=== PATIENT | male | born 1955 | race Caucasian/White ===

== ENCOUNTER → 2020-04-25 | Outpatient (CLI) | payer OTHER ==
[~2020-04-25] MED LIST: ACETAMINOPHEN325 M1 OR; ASPIRIN325 OR; IBUPROFEN 600600 M1 PO; IBUPROFEN 800800 M1 PO; KEFLEX500 MG PO; LIDODERM 5%1 PATC1 TRANSDERM; PERCOCET 10-321 EACH PO; PERCOCET 5-3251 EACH; PERCOCET 7.5-31 EACH PO; PROAIR HFA8.5 GM INH; TRAZODONE 150150 M1 PO; TRAZODONE 150150 MG PO; XANAX 0.5 MG0.5 M1 PO; XANAX 1 MG TABLE1 MG PO
== END ==
LOC: RAD 09:24
DX: M43.22 Fusion of spine, cervical region (principal)

== ENCOUNTER → 2020-05-07 | Outpatient (CLI) | payer OTHER | LOC: CAT 09:35 | DX: M48.02 Spinal stenosis, cervical region (principal); G89.28 Other chronic postprocedural pain; M43.22 Fusion of spine, cervical region; J98.4 Other disorders of lung; Z98.890 Other specified postprocedural states ==

== ENCOUNTER → 2020-05-10 | Outpatient (CLI) | payer OTHER ==
[2020-05-10 10:05] LABS: CREATININE 0.9 mg/dL (0.7-1.3)
== END ==
LOC: MRI 09:14
DX: M51.36 Other intervertebral disc degeneration, lumbar region (principal); M51.26 Other intervertebral disc displacement, lumbar region; M41.86 Other forms of scoliosis, lumbar region; M48.061 Spinal stenosis, lumbar region without neurogenic claudication; M25.78 Osteophyte, vertebrae; M43.26 Fusion of spine, lumbar region

== ENCOUNTER → 2020-06-05 | Outpatient (CLI) | payer OTHER | LOC: CAT 08:06 | DX: M47.816 Spondylosis without myelopathy or radiculopathy, lumbar region (principal); M54.42 Lumbago with sciatica, left side; M54.41 Lumbago with sciatica, right side; G89.29 Other chronic pain; M43.26 Fusion of spine, lumbar region ==

== ENCOUNTER 2020-07-18 06:06 | Inpatient (IN) | payer OTHER ==
[2020-07-17 14:25] LABS: APTT 26.3 Seconds (24.5-32.8); PROTIME 10.1 Seconds (9.3-11.4)
[~2020-07-18] VITALS: Ht 182.9 cm; Wt 61.2 kg
--- NOTE | ~2020-07-18 | O ---
[facility] [address] OPERATIVE REPORT Name: HUDSON SANCHEZ Room #: 150-2 ADM IN M.R.#: [id number] Admission: 07/18/20 Attend Phys: Fan Gould MD Discharge: Date of : 57 Report #: [id number] THIS REPORT FOR: cc: Mere Fuentes MD,Fan Cabello MD, MD ~ CC: Fan Fuentes DATE OF SERVICE: 07/18/2020 PREOPERATIVE DIAGNOSES: L2-L3 degenerative disk disease, asymmetric collapse due to super adjacent level breakdown, spondylosis with radiculopathy, L2-L3 nerve root radiculopathy, spinal stenosis L2, recurrent L3, foraminal stenosis L2-L3, retrolisthesis of L2-L3 and previous fusion L3-S1. PROCEDURES: Remove posterior segmental instrumentation L3-L5, exploration of fusion with findings of possible pseudarthrosis right L3-L4 and L4-L5, posterior segmental instrumentation L2-L5, posterior posterolateral fusion L2-L3, posterior posterolateral fusion L3-L4, posterior posterolateral fusion L4-L5, laminectomy with partial facetectomy and neural foraminotomy of L2, laminectomy with partial facetectomy and neural foraminotomy redo L3 for spinal stenosis, autograft synthetic bone, allograft. SURGEON: Dr. Fan Gould. AIR FORCE PILOT SURGEON: JESSE Bermudez. ANESTHETIC: General via endotracheal tube. INDICATIONS: The patient has had intractable back and left much-much greater than right anterior thigh pain. The patient has proved refractory to all forms of multimodality conservative management. He has been shown to have stenosis in the neural foramen at L2-L3 and some recurrent stenosis at L3-L4 neural foramen. The patient has proved refractory to all forms of multimodality conservative managements. He is requesting we proceed with operative intervention. The patient was brought to the operating room after understanding the risks of surgery to be , DVT, pulmonary embolism, paraplegia, loss of the use of the bowel, the bladder, loss of sexual function, possibility of bleeding, bleeding requiring transfusion, transfusion attendant risks of AIDS and hepatitis infection, instability, the need for revision, prolonged hospital stay, dural leak, spinal headache, infection and again he requested we proceed. DESCRIPTION OF PROCEDURE: The patient was brought to the operating room, administered general anesthesia via endotracheal tube. Lower extremities were [facility] [address] [place] [address] OPERATIVE REPORT Name: HUDSON SANCHEZ ALAN Room #: 150-2 [facility] IN .R.#: [id number] Admission: 07/18/20 Attend Phys: Fan Gould MD Discharge: Date of : 57 Report #: [id number] treated with EMMA hose and intermittent compression stockings. A Michel catheter was placed. Ancef was received and the patient was positioned on the Hugo table in the prone position with all bony prominences padded appropriately. Care was taken to ensure the shoulders not abducted more than 90 degrees, the elbows flexed more than 90 degrees and there was no undue pressure on the cubital or carpal canals. The area of the anterior superior iliac spine was well padded to protect the lateral femoral cutaneous nerve. Hips and knees were well padded and there was no pressure on the dorsum of the feet. The patient's low back was defatted with alcohol, visualized under fluoroscopy and the pedicles of L2 through L5 were marked on the patient's back for surgical reference. This was largely through previous incision. We then sterilely prepped and draped, infiltrated the skin with 0.5% Marcaine, 1:200,000 epinephrine and sharp dissection was continued down through the skin, the subcutaneous tissues. As we moved down through the scar, we were careful not to inadvertently penetrate the previous laminectomy at L2-L3 or the decompression from L3 to the sacrum. We skeletonized the instrumentation that was segmental from L3 to L5 including a transverse connector, set our deep self-retaining retractors and removed the instrumentation. We removed the segmental screws and the transverse connector of L3, L4, L5 and S1. We then explored the fusion continuing our dissection until we had scar removed that had been beneath the rods and screws and we were able to completely expose the posterolateral gutter and the posterior elements that remained at L3, L4 and L5. We then placed pedicle probes in the holes at L4-L5 and L3-L4. We stressed the fusion. It seemed significantly more stiff on the left side than the right. I was concerned that the patient had unilateral pseudarthrosis at L4-L5 and L5-S1. On that basis, we brought in fluoroscopy, affixed clamps on L2 and a very small remnant of L3 and these clamps were placed perpendicular to the floor. A lateral fluoroscopy view confirmed our level and gave us our pedicle directions for insertion of new screws in L2. We then decorticated the base of the transverse process in line with the lateral facet at L2 and inserted a pedicle probe and drilled it to a depth of 40 mm. With a probe inserted, we then removed it, palpated the hole to ensure cortical integrity and then placed a metallic marker. When the markers were bilaterally placed in the L2 pedicles, we brought the fluoro back and checked in AP and lateral fluoroscopic view and it showed excellent position of our markers. With our markers noted in good position, we were then able to tmd teacher the appropriate length of screws and we chose a 50 mm. We then tapped the holes in L2 and after tapping the holes, we decorticated posterolaterally and placed synthetic bone that had been soaked in blood that had been obtained through the pedicle process at L2 and after having removed the screws in L3, L4, and L5, there was enough blood that we could collect and soaked in the vertebral body blood rich in stem cells. This was then packed over the decorticated elements at L2-L3, L3-L4 and L4-L5. We then inserted the screws, measured, cut and contoured rods and locked them into place. We reinserted the screws at L3, L4 and L5, contoured the rods appropriately and then set the locking screws. Now with the right side instrumentation complete from L2-L5 and the fusions redone posterolaterally at [address] [address] OPERATIVE REPORT Name: HUDSON SANCHEZ Room #: 150-2 ADM IN M.R.#: [id number] Admission: 07/18/20 Attend Phys: Fan Gould MD Discharge: Date of : 57 Report #: [id number] L2-L3, L3-L4 and L4-L5, we turned our attention to the left side, the same procedure was accomplished. We pulled the pin from the pedicle of left L2. We noted that on the MRI that the pedicle measured significantly smaller than the right pedicle. We tapped with a 5.5-mm tap and while performing palpation with a ball tip probe noted that we were on the medial and the lateral cortex. Therefore, I stayed with a 5.5 mm screw, but before insertion it was decorticated posterolaterally, the transverse processes of L2, L3, L4, L5 and synthetic bone was packed that had been reconstituted with the vertebral body blood packed on the transverse processes and lateral facets from L2-L3 to L3-L4 to L4-L5. With the synthetic bone in place, we were then able to insert the screws, measured, cut and contoured the rods and noted that we had corrected some of the asymmetrical collapse narrower on the left at L2-L3. We did a final locking. We did not want to load the screw too much as it was a smaller screw and it was a smaller pedicle of L2. We had reduced the retrolisthesis of L2 to anatomic. We then locked all the caps to appropriate tightness with a torque wrench. We took a heavy bowl curette and debulked the scar and defined the intracanal margins of the previous decompression at L2-L3 and from L3-L5. We then used a micro curette to separate the scarred dura from the undersurface of the lamina of L2 that had been thinned with a high speed drill. The lamina of L2 had been thinned to its anterior cortex. We then dissected the scarred dura from the undersurface of the lamina, resected the lamina of L2 until we reached the L2 pedicles. We then turned our dissection lateralward first on the right performing partial facetectomies and ligament resections in redo fashion at L2-L3 and almost to the L3-L4 neural foramen, which was cleared with neural foraminotomy. This was to ensure that both the L2 and the L3 nerve roots had been completely decompressed. We then turned our attention to the left side and performed exactly the same procedure. We did laminectomy, partial facetectomies and neural foraminotomies of L2, L3 and to the L3-L4 neural foraminal decompression. With the decompression now complete, we drilled out the facets for a posterior fusion at L2-L3. We took the autologous bone from the laminectomy, all of which had been saved and run cleaned and run through the bone mill and used this bone to perform a posterior fusion at the L2-L3 level. We also used some of the autograft that we had from the decompression to augment the fusions at L2-L3, L3-L4, L4-L5. With the posterolateral and posterior fusions complete, we were able to irrigate with a liter of antibiotic-containing solution. We placed pledgets thrombin-soaked Gelfoam over the spinal canal. We obtained meticulous hemostasis. We placed a gram of powdered vancomycin in the wound. We closed the deep fascial layer with 0 Ethibond in [id number] interrupted fashion, deep subcutaneous with 0 Vicryl, superficial subcutaneous 2-0 Vicryl, skin with subcuticular 3-0. Dressed it with benzoin, Steri-Strips, Xeroform, sterile dressing, sponges and a bioclusive. The patient tolerated the procedure well, no technical misadventures, being transported to the recovery room for closer neurovascular observation, discharge to floor when stable. The patient's final blood loss was 500 mL. A Hemovac drain had been placed deep. The patient was physiologically stable throughout. There were no technical misadventures. All nerve roots probed completely free. The x-rays look superb [address] [address] OPERATIVE REPORT Name: HUDSON SANCHEZ MALIA Room #: 150-2 [facility] IN M.R.#: [id number] Admission: 07/18/20 Attend Phys: Fan Gould MD Discharge: Date of : 57 Report #: [id number] with respect to instrumentation placement and overall spinal alignment. The patient is being transported to the recovery room for closer neurovascular observation, continue prophylactic antibiotic and serial neurovascular exams until discharged to the floor when stable. By: 1128 [id number] Fan Gould MD /nt
[~2020-07-18 06:06] MED LIST changes: +ANORO ELLIPTA1 EACH INH; +MULTIVITAMINS PO
[2020-07-18 07:15] VITALS: BP 94/64
[2020-07-18 16:31] VITALS: BP 105/59
[2020-07-18 16:40] VITALS: BP 106/61
[2020-07-18 16:52] VITALS: BP 112/56
[2020-07-18 19:55] VITALS: BP 112/56
[2020-07-18 20:52] LABS: HEMATOCRIT 37.8 % (42.0-52.0); HEMOGLOBIN 12.4 gm/dL (14.0-18.0); MCH 33.7 pg (26.0-34.0); MCHC 32.7 g/dL (28.0-37.0); MCV 102.8 fL (80.0-100.0); RBC 3.68 mil/uL (4.50-6.00); RDW 14.6 % (10.5-14.5)
[2020-07-18 20:55] LABS: CALCIUM 8.9 mg/dL (8.5-10.1)
--- NOTE | 2020-07-18 20:56 | NUR ---
PT WAS WAKING UP FROM SURGERY AND STARTED PULLING ON THE HEAD OF BUSINESS DEVELOPMENT PUMP LINES. HE CONTINUED TO TAKE HIS CAPNOAGRAPHY SENSOR OFF. SECURITY WAS CALLED. WHILE TRYING TO REDIRECT PATIENT TO CALM DOWN HE CONTINUED TO PULL ON HIS LINES HE PULLED OUT HIS IV SITE. PT EDUCATED THAT HE WILL NOT BE ABLE TO GET ANY OF HIS IV MEDS. HE CONTINUED TO PULL ON ALL HIS LINES. SOFT RESTRAINTS WERE APPLIED FOR PATIENT SAFETY. INTERVENTION INITIATED. ORDERS PRN GIVEN BY SCOOTER OCONNELL. RESTRAINS CHECKED.
--- NOTE | 2020-07-18 21:17 | NUR ---
HERE TO GIVE PATIENT PAIN MEDS. HE WANTS BED ALARM TURNED OFF. I EDUCATED HIM. HE IS SITTING AT THE EDGE OF THE BED. RATES PAIN AT A 10/10. IVP DIULADID TO BE GIVEN.
--- NOTE | 2020-07-18 22:39 | NUR ---
Pt. came on to unit at 1430. Pt. was hostile and immaediately attempted to stand. Pt. refused to leave Capnography machine on. Pt. asked for more pain medication via IM injection. Provider notified, orders given, medication given. Pt. continued to have lapses of agitation and attempts to get out of bed. Provider notified, provider to put in orders. Upon returning from my lunch Pt. began to rip out lines and discontinued IV with DRUG ENFORCEMENT AGENT pump as well as attempted to knock the machine over the DRUG ENFORCEMENT AGENT's and Nieves were attempting to conserve pt. safety. I then assisted with security in protecting pt. while four-point restraints were applied by GERARD Pickett. During this process IM Lorazepam was given by GERARD Pickett to the pt. for pt safety. The patient's was notified of the restraints and understood and agreed that this was in the best interest of the pt. and his own safety. Pt. remained rested for the duration of the shift. Pt. began to show signs of sedation at change of shift with 8 respirations per minute being read on the Capnography machine. Provider notified, Rapid Response called. When patient was woke up and began interacting with those surrounding him, his respirations became stable at 14. Oncoming nurse MARISA'd DRUG ENFORCEMENT AGENT.
--- NOTE | 2020-07-19 00:29 | NUR ---
EXECUTIVE VICE PRESIDENT AND CHIEF OPERATING OFFICER called for decreased loc and decreased respirations. See EXECUTIVE VICE PRESIDENT AND CHIEF OPERATING OFFICER flowsheet.
--- NOTE | 2020-07-19 04:55 | NUR ---
UPON SHIFT CHANGE AND REPORT, PT OBSERVED WITH BILATERAL WRIST AND ANKLE RESTRAINTS. REVIEWED ORDERS WITH PT NURSE, SANDRA AND CHARGE NURSE, DONNA. PT ASSESSED AT 1950 WITH RESPIRATIONS BETWEEN 7-8 WHILE RECEIVING SHELL REPRINT OPERATOR OF DILAUDID WITH BASAL RATE OF 0.4MG/HR. PT DROWSY, SLOW TO AROUSE. RADIAL DRILL PRESS OPERATOR FOR PLASTIC NOTIFIED, ATTENDING NOTIFIED, RAPID RESPONSE INITIATED AT 1955, SHELL REPRINT OPERATOR STOPPED, RESTRAINTS REMOVED. RESTRAINTS CUT WITH SCISSORS DUE TO CLOSE PROXIMITY, LESS THAN A FINGER BREATH BETWEEN EXTREMITIES AND RESTRAINTS. DURING RAPID RESPONSE, PT NOTED TO HAVE INCREASING RESPIRATIONS FROM 11-17 BREATHS PER MINUTE, WITH CONTINUED OXYGEN AT 4L. PT ALSO BECOMING ALERT, SITTING ON SIDE OF BED, REMOVING CAPNOGRAPHY MONITOR. FOOD CLERK COORDINATED PLAN OF CARE WITH ATTENDING, EMAR UPDATED. PT NOTED TO BECOME INCREASINGLY IRRITABLE, FORGETFUL, CONFUSED, AND ARGUMENTATIVE. PT REPORTS 10/10 PAIN IN LOWER BACK. PT RECEIVING PRN IV DILAUDID Q3HR AND PRN OXYCODONE PO Q4HR. PT REASSESSED TO BE NODDING OFF, HAVING DIFFICULTY OPENING EYES, WITH RESTLESSNESS, IRRITABILTY,CONFUSION, UNCOOPERATIVE WITH FALL PRECAUTIONS, DIFFICULT TO REDIRECT AND CONSOLE. PT NOTED TO FREQUENTLY CONTACT PHYSICIAN PERSONALLY EXPRESSING NOT RECEIVING PAIN MEDICATIONS AND NEED TO INCREASE DOSAGE. THIS NURSE COMMUNICATED WITH ATTENDING TO PROVIDE UPDATE OF PT STATUS AND MENTAL STATUS, NO ORDERS RECEIVED. THROUGHOUT THE NIGHT PT CONTINUED WITH IRRITABILITY, UNCOOPERATIVENESS, SEEKING PAIN MEDICATION WHILE NODDING OFF AND DIFFICULTY OPENING EYES. PROVIDED EDUCATION TO PT IN REGARDS TO SAFE MEDICATION ADMINISTRATION, PT NOT RECEPTIVE TO EDUCATION, CONTINUES TO CONTACT ATTENDING PERSONALLY. DISCUSSED OPTIONS TO MANAGE ANXIETY AND PAIN, PT REQUESTING HIGHER DOSE OF DILAUDID AND XANAX ONLY. PROVIDED REASSURANCE TO PT THAT OXYCODONE AVAILABLE ALONG WITH PRN PO XANAX QID. PT CONTINUES TO BE DIFFICULT TO CONSOLE, REPORTING HE WILL GO AMA AND SOM. PT OBSERVED WALKING WITH WALKER, REFUSING FALL PRECAUTIONS AND SAFE ERGONOMIC ACTIVITY. PT ALSO OBSERVED SQUATTING WITH LITTLE DIFFICULTY WELL RECLINING WITHOUT ASSIST OR SUPPORT. PT NOTED TO HAVE FLACC OF 1, NOTED TO GRIMACE WITH WALKING, RECLINING, AND SQUATTING. CONSTANT OBSERVATION INITIATED WHEN 2ND SHELL REPRINT OPERATOR ARRIVED TO FLOOR TO PROMOTE FALL PRECAUTIONS AND PREVENT FALL DUE TO PT DROWSINESS WITH ACTIVITY. PT TOLERATING PO INTAKE OF FLUIDS AND REGULAR DIET. PT UNABLE TO VOID, EXPRESSING URGENCY WITHOUT EFFECT. PT REFUSING BLADDER SCAN BY THIS NURSE. FOOD CLERK NOTIFIED, PT BLADDER SCANNED WITH GREATER THAN 376ML. PROVIDED EDUCATION TO PT IN REGARDS TO URINARY RETENTION, STRAIGHT CATH TO RELIEVE BLADDER, AND RISKS OF NOT REMOVING URINE FROM BLADDER, PT NOT RECEPTIVE TO EDUCATION, REFUSING STRAIGHT CATH. PT ABDOMEN NONDISTENDED, NONTENDER.PT CONTINUES TO REQUEST URINAL AND WALKS TO BATHROOM WITHOUT EFFECT. CONSTANT OBSERVATION CONTINUES. ENCOURAGED PT TO NOTIFY STAFF FOR ALL NEEDS, CALL LIGHT WITHIN REACH, BED ALARM ON.
[2020-07-19 06:08] LABS: ABSOLUTE NEUTROPHILS 8.9 thou/uL (1.4-8.2); BASOPHILS 0.6 % (0.0-2.0); HEMATOCRIT 35.3 % (42.0-52.0); HEMOGLOBIN 11.7 gm/dL (14.0-18.0); LYMPHOCYTES 16.4 % (24.0-44.0); MCH 34.1 pg (26.0-34.0); MCHC 33.2 g/dL (28.0-37.0); MCV 102.5 fL (80.0-100.0); MONOCYTES 11.3 % (1.0-8.0); PLATELET COUNT 153 thou/uL (150-400); POLYS 71.7 % (36.0-66.0); RBC 3.44 mil/uL (4.50-6.00); RDW 14.2 % (10.5-14.5); WBC 12.3 thou/uL (4.0-11.0)
[2020-07-19 06:16] LABS: CALCIUM 8.8 mg/dL (8.5-10.1); CREATININE 1.1 mg/dL (0.7-1.3); POTASSIUM 4.5 mmol/L (3.5-5.1)
[2020-07-19 08:10] VITALS: BP 100/73
--- NOTE | 2020-07-19 08:19 | EKG ---
[facility] [place] [place] [address] ELECTROCARDIOGRAM REPORT Name: HUDSON SANCHEZ Room #: 439-P ADM IN M.R.#: [id number] Admission: 07/18/20 Attend Phys: Fan Golud MD Discharge: Date of : 57 Report #: [id number] THIS REPORT FOR: cc: Mere Fuentes MD, Michelle R. MD Santiago, Patrick MD [facility] ~ THIS REPORT FOR: //name// [facility] Test Date: 2020-07-18 Test Time: 20:08:48 Pat Name: HUDSON SANCHEZ Department: Room: 439 P Gender: M Wool Tamper: PHI : 1955 Requested By: Fan Gould Order Number: [id number] MD: Jonathon Saunders Measurements Intervals [place] Rate: 88 P: 65 NE: 165 QRS: 47 QRSD: 90 T: 57 QT: 354 QTc: 429 Interpretive Statements Sinus rhythm Compared to ECG 05/04/2016 10:12:03 Ectopic atrial rhythm no longer present Electronically Signed On 07-19-2020 8:19:50 CDT by Jonathon Saunders [email or web address] <ELECTRONICALLY SIGNED> By: Jonathon Saunders MD, FACC 07/19/20 0819 07 07 Jonathon Saunders MD, FAC /EPI
[2020-07-19] MEDS ORDERED: FLEXERIL PO (08:46)
[2020-07-19] MEDS ORDERED: MIRALAX17 GM PO (08:46)
[2020-07-19] MEDS ORDERED: COLACE100 MG PO (08:46)
[2020-07-19 09:55] VITALS: BP 100/73
--- NOTE | 2020-07-19 10:11 | NUR ---
CM WAS GOING TO MEET WITH PATIENT BUT BEDSIDE RN REPORTS PATIENT HAS ORDERS TO DISCHARGE HOME TO SELF CARE WITH NO NEEDS FROM CM. SHE REPORTS PATIENT IS DISCHARGING NOW. CASE CLOSED.
--- NOTE | 2020-07-19 10:30 | NUR ---
PT ASSESSED AT START OF SHIFT. CALM AND COOPERATIVE AT THE TIME BUT VERY DROWSY AND SOMEWHAT FORGETFUL. DR. YOUNG IN AT O730 TO SEE PT. CONVINCED PT TO ALLOW BLADDER SCAN AND STR CATH. ATTEMPTED TO STR CATH W/ 14F BUT UNSUCCESSFUL. DR. YOUNG OBTAINED 10FR AND WAS ABLE TO DRAIN 500MLS CLEAR YELLOW URINE. ORDER FOR PT DISCHAGE OBTAINED PER PT REQUEST. HERE AND INSTRUCTIONS GONE OVER. PT DC'D W/ ALL BELONGINGS AND WILL F/U W/ DR. YOUNG.
--- NOTE | 2020-07-19 10:36 | NUR ---
PATIENT D/C HOME WITH NO NEEDS PRIOR TO OT EVAL.
== END 2020-07-19 10:42 | disposition home or self-care (01) | DRG 460 ==
LOC: TBA 06:06 → PRE 11:50 → 4S 14:30
PROVIDERS: ATTEND Hospitalist
PROC: 0SG10AJ Fusion of 2 or more Lumbar Vertebral Joints with Interbody Fusion Device, Posterior Approach, Anterior Column, Open Approach (ICD-10-PCS; principal; 2020-07-18)
PROC: 01NB0ZZ Release Lumbar Nerve, Open Approach (ICD-10-PCS; principal; 2020-07-18)
DX: M48.061 Spinal stenosis, lumbar region without neurogenic claudication (principal); F11.20 Opioid dependence, uncomplicated; G89.29 Other chronic pain; M54.9 Dorsalgia, unspecified; F41.9 Anxiety disorder, unspecified; J44.9 Chronic obstructive pulmonary disease, unspecified; F17.210 Nicotine dependence, cigarettes, uncomplicated; F12.90 Cannabis use, unspecified, uncomplicated; M51.16 Intervertebral disc disorders with radiculopathy, lumbar region; Z88.6 Allergy status to analgesic agent; Z88.8 Allergy status to other drugs, medicaments and biological substances; Z20.828 Contact with and (suspected) exposure to other viral communicable diseases
CPT/HCPCS: 10102; 50010; 50101; 50402; 50850; 50923; 51412; 51878; 56524; 56529; 62110; 62900; 70005

== ENCOUNTER → 2020-07-31 | Outpatient (CLI) | payer OTHER ==
[~2020-07-31] MED LIST changes: +COLACE100 MG PO; +FLEXERIL PO; +MIRALAX17 GM PO
== END ==
LOC: RAD 09:12
DX: M51.36 Other intervertebral disc degeneration, lumbar region (principal); M48.061 Spinal stenosis, lumbar region without neurogenic claudication; M25.78 Osteophyte, vertebrae; M41.86 Other forms of scoliosis, lumbar region

== ENCOUNTER → 2020-08-14 | Outpatient (CLI) | payer OTHER | LOC: RAD 15:10 | DX: M43.27 Fusion of spine, lumbosacral region (principal); M96.1 Postlaminectomy syndrome, not elsewhere classified; Z98.890 Other specified postprocedural states ==

== ENCOUNTER → 2020-11-12 | Outpatient (CLI) | payer OTHER | LOC: CAT 13:16 | PROVIDERS: ATTEND Specialist | DX: M51.37 Other intervertebral disc degeneration, lumbosacral region (principal); M46.1 Sacroiliitis, not elsewhere classified; M43.26 Fusion of spine, lumbar region; M47.816 Spondylosis without myelopathy or radiculopathy, lumbar region; M41.86 Other forms of scoliosis, lumbar region; M48.061 Spinal stenosis, lumbar region without neurogenic claudication; M25.78 Osteophyte, vertebrae ==

== ENCOUNTER → 2020-11-21 | Outpatient (CLI) | payer OTHER ==
[~2020-11-21] VITALS: Ht 182.9 cm; Wt 65.8 kg
[~2020-11-21] MED LIST changes: +DESYREL150 MG PO; +Desyrel 150 MG PO; -TRAZODONE 150150 M1 PO; +XANAX 0.25 MG0.25 MG PO; -XANAX 0.5 MG0.5 M1 PO
[2020-11-21 08:57] VITALS: BP 105/67
--- NOTE | 2020-11-21 09:26 | NUR ---
ALERT - Griffin Score <= 18: Add Problem PRESSURE ULCER RISK to Patient's Care Plan
--- NOTE | 2020-11-21 09:26 | NUR ---
Pain Clinic Assessment: 1. History of Osteoarthritis: Not Applicable History of Rheumatoid Arthritis: Not Applicable 2. Height: 6 ft. 0 in. 182.9 cm. Weight: 145.0 lb. oz. 65.772 kg. Patient's BMI: 19.7 3. Vital Signs: BP: 105/67 Pulse: 73 Resp: 14 Temp: 02 Sat: 94 ECG Mon: 4. Pain Intensity: 7 5. Fall Risk: Dizziness: N Needs help standing or walking: N Fallen in the last 3 months: N Fall risk comments: 6. Patient on Blood Thinner: None 7. History of Hypertension: N 8. Opioid Therapy greater than 6 weeks: Y Opiate Contract Signed: 9. Risk Assessment Tool Provided: LOW 10. Functional Assessment Tool: 11. Recreational Drug Use: Never Drug Type: Tobacco Use: Current Every Day Smoker Tobacco Type: Cigarettes Amount or Packs/day: 1 How Many Years: 50 Alcohol Use: Yes Frequency: Weekly Quant: 2-3
== END ==
LOC: PAIN 06:57
PROVIDERS: ATTEND Anesthesiology Pain Medicine
DX: R10.2 Pelvic and perineal pain (principal); G89.29 Other chronic pain; J44.9 Chronic obstructive pulmonary disease, unspecified; M53.3 Sacrococcygeal disorders, not elsewhere classified; F17.200 Nicotine dependence, unspecified, uncomplicated; F11.20 Opioid dependence, uncomplicated

== ENCOUNTER → 2020-12-19 | Outpatient (CLI) | payer OTHER ==
[~2020-12-19] VITALS: Ht 182.9 cm; Wt 67.9 kg
[2020-12-19 08:59] VITALS: BP 103/63
--- NOTE | 2020-12-19 09:11 | NUR ---
Pain Clinic Assessment: 1. History of Osteoarthritis: Not Applicable History of Rheumatoid Arthritis: Not Applicable 2. Height: 6 ft. 0 in. 182.9 cm. Weight: 149.6 lb. oz. 67.858 kg. Patient's BMI: 20.3 3. Vital Signs: BP: 103/63 Pulse: 78 Resp: 14 Temp: 02 Sat: 95 ECG Mon: 4. Pain Intensity: 7 5. Fall Risk: Dizziness: N Needs help standing or walking: N Fallen in the last 3 months: N Fall risk comments: 6. Patient on Blood Thinner: None 7. History of Hypertension: N 8. Opioid Therapy greater than 6 weeks: Y Opiate Contract Signed: 9. Risk Assessment Tool Provided: LOW 10. Functional Assessment Tool: 11. Recreational Drug Use: Never Drug Type: Tobacco Use: Current Every Day Smoker Tobacco Type: Cigarettes Amount or Packs/day: 1 pack How Many Years: Alcohol Use: Yes Frequency: Weekly Quant: 2-3
== END | disposition home or self-care (01) ==
LOC: PAIN 06:35
PROVIDERS: ATTEND Anesthesiology Pain Medicine
DX: M53.3 Sacrococcygeal disorders, not elsewhere classified (principal); J44.9 Chronic obstructive pulmonary disease, unspecified; F17.210 Nicotine dependence, cigarettes, uncomplicated; Z98.890 Other specified postprocedural states; Z79.899 Other long term (current) drug therapy; Z88.8 Allergy status to other drugs, medicaments and biological substances
CPT/HCPCS: G0260